=== PATIENT | female | born 1980 | race African-American/Black ===

== ENCOUNTER 2017-01-10 18:08 | Emergency (ER) | payer OTHER ==
[~2017-01-10] VITALS: Ht 157.5 cm; Wt 110.0 kg
[2017-01-10 18:11] VITALS: BP 126/74; PULSE 120; RESP 28; TEMP 98.7; O2SAT 96
[2017-01-10] MEDS ORDERED: ALBUAER3 INH ×2 (18:19→18:42)
[2017-01-10] MEDS ORDERED: predniSONE 20 MG TAB PO ONE (18:30)
[2017-01-10] MEDS ORDERED: RESP: ALBUTEROL 2.5 MG/IPRATROPIUM 0.5 MG NEB (SCH) INH ONE ×2 (18:30→21:00)
[2017-01-10] MEDS: RESP: ALBUTEROL 2.5 MG/IPRATROPIUM 0.5 MG NEB (SCH) INH ×3 (18:34→20:49)
--- NOTE | 2017-01-10 18:35 | PD ---
HPI . Wheezing Chief Complaint: Respiratory Symptoms Time Seen by Provider: 18:30 Travel History International Travel<30 days: No Contact w/Intl Traveler<30days: No Traveled to known affect area: No History of Present Illness HPI Patient presents ambulatory for respiratory distress associated with asthma. History is obtained from her . The patient agrees with her 's history. The states that she started having increased difficulty breathing last night. She used her albuterol MDI until it ran out today. She used approximately 4 times today before it ran out. She has not had a fever or a productive cough. She has a long-standing history of asthma. The is not aware of any causative factor for her acute respiratory distress. [facility] Past Medical History Asthma: Yes Diminished Hearing: No Respiratory: Yes (ASTHMA) ?: Not LMP: 12/04/16 Past Surgical History Surgical History: No Previous Surgery Social History Alcohol Use: No Tobacco Use: Yes (1/2 PPD) Substance Use: No Allergies-Medications (Allergen,Severity, Reaction): Coded Allergies: No Known Allergies (Verified Allergy, Unknown, 01/10/17) Reported Meds & Prescriptions Reported Meds & Active Scripts Active Prednisone 20 Mg Tab 60 Mg PO DAILY 4 Days Take 60 MG daily x 4 days, then 40 MG x 4 days, then 20 MG daily x 4 days. Proair Hfa 8.5 GM Inh (Albuterol Sulfate) 90 Mcg/Act Aer 2 Puff INH Q4-6H PRN 108 mcg/actuation Review of Systems Except as stated in HPI: all other systems reviewed are Neg Respiratory: Positive: Cough, Shortness of Breath, Wheezing Physical Exam Narrative GENERAL: Tripoding posture SKIN: Warm and dry. HEAD: Atraumatic. Normocephalic. EYES: Pupils equal and round. Extraocular movements intact. ENT: No nasal bleeding or discharge. Mucous membranes pink and moist. NECK: Trachea midline. Neck supple. CARDIOVASCULAR: Sinus tachycardia. Heart sounds normal. RESPIRATORY: Obvious respiratory distress. Very poor air movement. Diffuse I& E wheezing. GASTROINTESTINAL: Abdomen soft, non-tender, nondistended. MUSCULOSKELETAL: No obvious deformities. No edema. NEUROLOGICAL: Awake and alert. No obvious cranial nerve deficits. Motor grossly within normal limits. Normal speech. PSYCHIATRIC: Appropriate mood and affect; insight and judgment normal. Data Data Last Documented VS Vital Signs Date Time Temp Pulse Resp B/P (MAP) Pulse Ox O2 Delivery O2 Flow Rate FiO2 01/10/17 18:37 98 Room Air 01/10/17 18:35 105 20 01/10/17 18:11 98.7 126/74 (91) Orders Orders Prednisone (Deltasone) (01/10/17 18:30) Albuterol-Ipratropium Neb (Duoneb Neb) (01/10/17 18:30) Basic Metabolic Panel (Bmp) (01/10/17 18:31) Complete Blood Count With Diff (01/10/17 18:31) Chest, Single Ap (01/10/17 18:31) Ecg Monitoring (01/10/17 18:31) Iv Access Insert/Monitor (01/10/17 18:31) Oximetry (01/10/17 18:31) Oxygen Administration (01/10/17 18:31) Methylprednisolone So Succ Inj (Solumedr (01/10/17 18:45) Albuterol-Ipratropium Neb (Duoneb Neb) (01/10/17 18:45) Sodium Chloride 0.9% Flush (Ns Flush) (01/10/17 18:45) MDM Medical Decision Making Medical Screen Exam Complete: Yes Emergency Medical Condition: Yes Differential Diagnosis Differential diagnosis of dyspnea includes but is not limited to congestive heart failure, pneumonia, wheezing, pneumothorax, pulmonary embolism Narrative Course This patient presents ambulatory for an asthma attack. She is in respiratory distress on arrival. I have ordered stacked nebs and Solu-Medrol. Her care is being turned over to Dr. Perkins. Critical Care Narrative Aggregate critical care time was 20 minutes. Time to perform other separately billable procedures was not included in the critical care time. My time did not include minutes spent treating any other patients simultaneously or on activities that did not directly contribute to the patient's treatment. The services I provided to this patient were to treat and/or prevent clinically significant deterioration due to respiratory distress I provided critical care services requiring my management, as noted below: Chart data review, documentation time, medication orders and management, vital sign assessments/reviewing monitor data, ordering and reviewing lab tests, ordering and interpreting/reviewing x-rays and diagnostic studies, care of the patient and discussion of the patient with the admitting physicians Diagnosis Primary Impression: Respiratory distress Additional Impression: Acute exacerbation of extrinsic asthma Patient Instructions: Asthma (DC), General Instructions Med/Other Pt SpecificInfo: Prescription(s) given Scripts Prednisone (Prednisone) 20 Mg Tab 60 MG PO DAILY for 4 Days, #24 TAB 0 Refills Take 60 MG daily x 4 days, then 40 MG x 4 days, then 20 MG daily x 4 days. Prov: Inna Wild MD 01/10/17 Albuterol 8.5 GM Inh (Proair Hfa 8.5 GM Inh) 90 Mcg/Act Aer 2 PUFF INH Q4-6H Y for SHORTNESS OF BREATH, #1 INHALER 0 Refills 108 mcg/actuation Prov: Inna Wild MD 01/10/17 Condition: Stable Inna Wild MD Jan 10, 2017 18:34
[2017-01-10] MEDS ORDERED: PRED20 PO (18:42)
[2017-01-10] MEDS ORDERED: methylPREDNISolone SOD SUCC 125 MG/2 ML VIAL IVP ONE (18:45)
[2017-01-10] MEDS ORDERED: SODIUM CHLORIDE 0.9% FLUSH 10 ML FLUSH IVF PRN (18:45)
[2017-01-10 19:03] LABS: AUTOMATED NEUTROPHIL # 7.4 TH/MM3 (1.8-7.7); BASOPHIL # 0.1 TH/MM3 (0-0.2); BASOPHIL % 0.9 % (0.0-2.0); EOSINOPHIL # 0.3 TH/MM3 (0-0.4); EOSINOPHIL % 2.5 % (0.0-4.0); HEMO FLAGS DIFF FINAL; LYMPH % 20.1 % (9.0-44.0); LYMPHOCYTE # 2.4 TH/MM3 (1.0-4.8); MEAN CELL VOLUME 88.8 FL (80.0-100.0); MEAN CORPUSCULAR HEMOGLOBIN 28.4 PG (27.0-34.0); MEAN CORPUSCULAR HGB CONC 31.9 % (32.0-36.0); MONO % 15.1 % (0.0-8.0); NEUT % 61.4 % (16.0-70.0); PLATELET COUNT 363 TH/MM3 (150-450); RED BLOOD COUNT 4.72 MIL/MM3 (4.00-5.30); RED CELL DISTRIBUTION WIDTH 13.5 % (11.6-17.2)
[2017-01-10 19:14] VITALS: BP 135/84; PULSE 106; RESP 18; TEMP 98.1; O2SAT 97
--- NOTE | 2017-01-10 19:24 | PD ---
Physical Exam Narrative Patient was seen by ED physician and signed out to me. Data Data Last Documented VS Vital Signs Date Time Temp Pulse Resp B/P (MAP) Pulse Ox O2 Delivery O2 Flow Rate FiO2 01/10/17 19:14 98.1 106 18 135/84 (101) 97 Room Air Orders Orders Prednisone (Deltasone) (01/10/17 18:30) Albuterol-Ipratropium Neb (Duoneb Neb) (01/10/17 18:30) Basic Metabolic Panel (Bmp) (01/10/17 18:31) Complete Blood Count With Diff (01/10/17 18:31) Chest, Single Ap (01/10/17 18:31) Ecg Monitoring (01/10/17 18:31) Iv Access Insert/Monitor (01/10/17 18:31) Oximetry (01/10/17 18:31) Oxygen Administration (01/10/17 18:31) Methylprednisolone So Succ Inj (Solumedr (01/10/17 18:45) Albuterol-Ipratropium Neb (Duoneb Neb) (01/10/17 18:45) Sodium Chloride 0.9% Flush (Ns Flush) (01/10/17 18:45) Levofloxacin (Levaquin) (01/10/17 20:30) Duoneb X1 Dose (01/10/17 21:00) Labs Laboratory Tests Test 01/10/17 18:43 White Blood Count 12.0 TH/MM3 Red Blood Count 4.72 MIL/MM3 Hemoglobin 13.4 GM/DL Hematocrit 42.0 % Mean Corpuscular Volume 88.8 FL Mean Corpuscular Hemoglobin 28.4 PG Mean Corpuscular Hemoglobin Concent 31.9 % Red Cell Distribution Width 13.5 % Platelet Count 363 TH/MM3 Mean Platelet Volume 8.4 FL Neutrophils (%) (Auto) 61.4 % Lymphocytes (%) (Auto) 20.1 % Monocytes (%) (Auto) 15.1 % Eosinophils (%) (Auto) 2.5 % Basophils (%) (Auto) 0.9 % Neutrophils # (Auto) 7.4 TH/MM3 Lymphocytes # (Auto) 2.4 TH/MM3 Monocytes # (Auto) 1.8 TH/MM3 Eosinophils # (Auto) 0.3 TH/MM3 Basophils # (Auto) 0.1 TH/MM3 CBC Comment DIFF FINAL Differential Comment Blood Urea Nitrogen 9 MG/DL Creatinine 0.93 MG/DL Random Glucose 103 MG/DL Calcium Level 7.5 MG/DL Sodium Level 136 MEQ/L Potassium Level 4.2 MEQ/L Chloride Level 105 MEQ/L Carbon Dioxide Level 23.4 MEQ/L Anion Gap 8 MEQ/L Estimat Glomerular Filtration Rate 82 ML/MIN MDM Supervised Visit with DIAN: No Interpretation(s) 2008 p.m. Chest x-ray shows left lower lobe infiltrate. CBC WBC 12.0. Normal differential. BMP within normal limit. Narrative Course Patient received 4 albuterol with Atrovent unit dose treatment reported by ED physician. I took over the case at 7 PM. Patient is to have moderate expiratory wheezes bilaterally. Patient states that she is feeling better. Patient requesting one more treatment. Patient refuses admission. I advised patient she has pneumonia and acute exacerbation of asthma and she needs to be admitted . Patient refuses admission. Patient has to go to the airport [place] go back home. Patient was warned of respiratory failure especially in the air in the morning. Diagnosis Primary Impression: Pneumonia Qualified Codes: J18.1 - Lobar pneumonia, unspecified organism Additional Impression: Acute exacerbation of extrinsic asthma Patient Instructions: General Instructions, Asthma (DC) Med/Other Pt SpecificInfo: Prescription(s) given Scripts Levofloxacin (Levaquin) 750 Mg Tablet 750 MG PO DAILY for Infection, #10 TAB 0 Refills Prov: Alonso Perkins MD 01/10/17 Prednisone (Prednisone) 20 Mg Tab 60 MG PO DAILY for 4 Days, #24 TAB 0 Refills Take 60 MG daily x 4 days, then 40 MG x 4 days, then 20 MG daily x 4 days. Prov: Inna Wild MD 01/10/17 Albuterol 8.5 GM Inh (Proair Hfa 8.5 GM Inh) 90 Mcg/Act Aer 2 PUFF INH Q4-6H Y for SHORTNESS OF BREATH, #1 INHALER 0 Refills 108 mcg/actuation Prov: Inna Wild MD 01/10/17 Condition: Stable Alonso Perkins MD Jan 10, 2017 19:24
[2017-01-10 19:50] LABS: BICARBONATE 23.4 MEQ/L (21.0-32.0)
[2017-01-10 19:51] LABS: POTASSIUM 4.2 MEQ/L (3.5-5.1)
--- NOTE | 2017-01-10 19:57 | RADRPT ---
EXAM DATE/TIME: 01/10/2017 19:30 [place] COMPARISON: No previous studies available for comparison. INDICATIONS : Cough MEDICAL HISTORY : Asthma SURGICAL HISTORY : None. ENCOUNTER: Initial ACUITY: 1 day PAIN SCORE: 0/10 LOCATION: Bilateral chest FINDINGS: There is mild patchiness within the left lung base consistent with possible developing pneumonia. Cl inical correlation is recommended. The right lung is clear. The heart is normal. CONCLUSION: 1. Mild patchiness within the left lung base consistent with possible developing pneumonia. Clinica l correlation is recommended. Tulio Bautista MD on January 10, 2017 at 19:52 Board Certified Radiologist. This report was verified electronically.
[2017-01-10] MEDS ORDERED: LEVOFLOXACIN 750 MG TAB PO ONE (20:30)
[2017-01-10] MEDS ORDERED: LEVA750T9 PO (20:54)
[2017-01-10 21:30] VITALS: BP 134/72; PULSE 100; RESP 20; TEMP 98.1; O2SAT 98
== END 2017-01-10 22:06 | disposition home or self-care (01) ==
LOC: NEPE 18:08
DX: J18.1 Lobar pneumonia, unspecified organism (principal); J45.901 Unspecified asthma with (acute) exacerbation; R06.00 Dyspnea, unspecified; F17.200 Nicotine dependence, unspecified, uncomplicated; Z87.09 Personal history of other diseases of the respiratory system
CPT/HCPCS: 71010; 80048; 85025; 94640; 94664; 96374; 99285; J2930; J7512